=== PATIENT | male | born 1970 | race American Indian/Alaskan Native ===

== ENCOUNTER 2022-03-15 11:59 | Outpatient (CLI) | payer OTHER ==
--- NOTE | 2022-03-15 14:35 | XRay Report ---
LEFT TIBIA-FIBULA 2 VIEW(S) INDICATION / CLINICAL INFORMATION: Z02.71 DISABILITY DETERMINATION COMPARISON: None available. FINDINGS: BONES / JOINT(S): No acute fracture or subluxation. No significant arthritis. Patient is status post plate screw fixation of the proximal tibia. No hardware abnormality. SOFT TISSUES: No significant abnormality. ADDITIONAL FINDINGS: None. BILATERAL KNEE 2 VIEW(S) INDICATION / CLINICAL INFORMATION: Z02.71 DISABILITY DETERMINATION COMPARISON: None available. FINDINGS: BONES / JOINT(S): No acute fracture or subluxation. No significant arthritis. Patient is status post plate-screw fixation of the proximal left tibia. No hardware abnormality. SOFT TISSUES: No significant abnormality. ADDITIONAL FINDINGS: None. Signer Name: Nilo Hawkins DO Signed: 03/15/2022 2:31 PM Workstation Name: [employer][id number]
== END 2022-03-15 12:00 | disposition home or self-care (01) ==
LOC: XRAY 11:59
PROVIDERS: ATTEND Internal Medicine
DX: Z02.71 Encounter for disability determination (principal)